=== PATIENT | male | born 1965 | race Caucasian/White ===

== ENCOUNTER 2017-02-25 09:01 | Emergency (ER) ==
[2017-02-25 09:04] VITALS: BP 149/82; TEMP 97.9; BMI 23.7
[2017-02-25] MEDS ORDERED: MORPHINE 10 MG/ML SYRINGE IM STA ×2 (09:11→10:18)
[2017-02-25] MEDS ORDERED: ZOFRAN 4 MG/2 ML IM STA (09:11)
[2017-02-25] MEDS ORDERED: MORPHINE 2 MG/ML SYRINGE IM STA ×2 (09:12→10:19)
[2017-02-25 09:40] LABS: BASOPHILS # (AUTO) 0.1 K/uL (0-0.2); BASOPHILS % (AUTO) 0.5 % (0.0-3.0); EOSINOPHILS # (AUTO) 0.1 K/ul (0.0-0.7); HEMATOCRIT 44.7 % (42.0-52.0); HEMOGLOBIN 15.8 g/dl (14.0-18.0); IMMATURE GRANULOCYTE % (AUTO) 0.3 % (0.0-5.0); LYMPHOCYTES # (AUTO) 2.6 K/uL (0.60-3.4); LYMPHOCYTES % (AUTO) 25.6 (10.0-50.0); MEAN CORPUSCULAR HEMOGLOBIN 31.1 pg (27.0-31.0); MEAN CORPUSCULAR HGB CONC 35.3 (31.8-35.4); MONOCYTES # (AUTO) 0.9 K/uL (0.4-2.0); MONOCYTES % (AUTO) 8.7 (0-10); NEUTROPHILS # (AUTO) 6.5 K/ul (2.0-6.9); NEUTROPHILS % (AUTO) 63.9; PLATELET COUNT 232 10^3/uL (140-440); RED BLOOD COUNT 5.08 10^6/ul (4.70-6.10); WHITE BLOOD COUNT 10.18 K/ul (4.2-10.2)
[2017-02-25 09:58] LABS: ALBUMIN 3.3 g/dL (3.4-5.0); ALBUMIN/GLOBULIN RATIO 0.79; ANION GAP 15.9; BILIRUBIN,TOTAL 0.3 mg/dL (0.00-1.20); BUN/CREATININE RATIO 13.54; CALCIUM 9.8 mg/dL (8.2-10.2); CREATININE 0.96 mg/dL (0.60-1.10); POTASSIUM 3.9 mmol/L (3.5-5.1); TOTAL PROTEIN 7.5 g/dL (6.4-8.2)
--- NOTE | 2017-02-25 10:08 | CT ---
EXAM: CT of the head without contrast History: Headache. Comparison: Head CT 05/26/2015 Technique: Multiplanar CT images through the head were obtained without the administration of IV con trast Findings: The visualized paranasal sinuses and mastoid air cells are clear in general. No acute yodit varial abnormalities. Intracranially the ventricular and cisternal spaces are normal in size, shape and configuration for a patient of this age. No dominant mass or midline shift. No hydrocephalous. No acute intracranial hemorrhage or abnormal extraaxial fluid collections. Impression: No acute intracranial process
[2017-02-25 11:19] LABS: ERYTHROCYTE SEDIMENTATION RATE 15 mm/hr (0-15); ESR INTERNAL QC INTERNAL QC VALID
--- NOTE | 2017-02-25 11:23 | ED.PDOC ---
General ED Provider: Dr. JOSEY SALGUERO Chief Complaint: Headache Stated Complaint: headache Time Seen by Physician: 09:00 Mode of Arrival: Walk-In Information Source: Patient Exam Limitations: No limitations Nursing and Triage Documentation Reviewed and Agree: Yes Reviewed sepsis parameters & appropriate labs ordered?: Yes System Inflammatory Response Syndrome: Not Applicable Neurological Complaint Exam - Headache Complaint/Exam Onset: Gradual Duration: 1 day Symptoms Are: Still present Episodes Lasting: Hours Worst Headache Ever: No Initial Severity: Moderate Current Severity: Moderate Location: Diffuse Character: Reports: Typical headache, Migraine Aggravating: Reports: None Alleviating: Reports: None Associated Signs and Symptoms: Denies: Dizziness, Seizure, Nausea, Vomiting, Sinus pressure, Fever, Neck pain, Neck stiffness, Decreased LOC, Visual changes Related History: Reports: Similar episode Related Surgical History: Reports: None SAH Risk Factors: Reports: None Meningitis Risk Factors: Reports: None SDH Risk Factors: Reports: None Temporal Arteritis Risk Factors: Reports: None Normal Head CT Within Last 12 Months: No Fundoscopic Exam: Present: Normal Findings Papilledema Present: No Temporal Artery Tenderness: Present: None Sinus Tenderness: Present: None TMJ Tenderness: Present: None Glascow Coma Scale (see protocol): 15 Meningeal Signs Positive: No Pain on Passive Flexion-Positive Kernig's: No ROM Limited In: No Limitiations Focal Weakness: Present: None Focal Sensory Loss: Present: None Gait: Normal Nystagmus Present: No Gag Reflex Present: Yes [id number]: Normal Findings Babinski Sign: Negative Right, Negative Left Differential Diagnoses: Migraine, Temporal Arteritis, Tension Headache Review of Systems - Review Of Systems Constitutional: Reports: No symptoms Eyes: Reports: No symptoms Ears, Nose, Mouth, Throat: Reports: No symptoms Respiratory: Reports: No symptoms Cardiac: Reports: No symptoms GI: Reports: No symptoms : Reports: No symptoms Musculoskeletal: Reports: No symptoms Skin: Reports: No symptoms Neurological: Reports: Headache Endocrine: Reports: No symptoms Hematologic/Lymphatic: Reports: No symptoms All Other Systems: Reviewed and Negative Past Medical History - Past Medical History Previously Healthy: Yes Endocrine: Reports: None Cardiovascular: Reports: Hypertension Respiratory: Reports: None Hematological: Reports: None Gastrointestinal: Reports: None Genitourinary: Reports: None Neuro/Psych: Reports: None Musculoskeletal: Reports: None Cancer: Reports: None - Surgical History General Surgical History: Reports: Unknown - Family History Family History: Reports: Unknown - Social History Smoking Status: Current every day smoker, Heavy tobacco smoker Hx Substance Use: No Alcohol Screening: None Physical Exam - Physical Exam Appearance: Well-appearing, No pain distress, Well-nourished Eyes: ZAHRA, EOMI, Conjunctiva clear ENT: Ears normal, Nose normal, Oropharynx normal Respiratory: Airway patent, Breath sounds clear, Breath sounds equal, Respirations nonlabored Cardiovascular: RRR, Pulses normal, No rub, No murmur GI/: Soft, Nontender, No masses, Bowel sounds normal, No Organomegaly Musculoskeletal: Normal strength, ROM intact, No edema, No calf tenderness Skin: Warm, Dry, Normal color Neurological: Sensation intact, Motor intact, Reflexes intact, Cranial nerves intact, Alert, Oriented Psychiatric: Affect appropriate, Mood appropriate Critical Care Note - Critical Care Note Total Time (mins): 0 Course - Course Hematology/Chemistry: 02/25/17 09:25 02/25/17 09:25 Orders, Labs, Meds: Lab Review 02/25/17 02/25/17 02/25/17 09:25 09:25 09:25 WBC 10.18 RBC 5.08 Hgb 15.8 Hct 44.7 MCV 88.0 MCH 31.1 H MCHC 35.3 RDW Coeff of Grazyna 13.7 Plt Count 232 Immature Gran % (Auto) 0.3 Neut % (Auto) 63.9 Lymph % (Auto) 25.6 Clinch % (Auto) 8.7 Eos % (Auto) 1.0 Baso % (Auto) 0.5 Immature Gran # (Auto) 0.0 Neut # 6.5 Lymph # 2.6 Clinch # 0.9 Eos # 0.1 Baso # 0.1 ESR 15 Sodium 140 Potassium 3.9 Chloride 100 Carbon Dioxide 28 Anion Gap 15.9 BUN 13 Creatinine 0.96 Estimated GFR (MDRD) 83.00 BUN/Creatinine Ratio 13.54 Glucose 107 H Calcium 9.8 Total Bilirubin 0.30 AST 39 H ALT 56 Alkaline Phosphatase 69 Total Protein 7.5 Albumin 3.3 L Globulin 4.2 Albumin/Globulin Ratio 0.79 Orders Category Date Time Status BLOOD CULTURE Stat LAB 02/25/17 09:15 Completed CBC W/ AUTO DIFF Stat LAB 02/25/17 09:25 Completed COMPREHENSIVE METABOLIC PANEL Stat LAB 02/25/17 09:25 Completed ESR Stat LAB 02/25/17 09:25 Completed Morphine Sulfate [Morphine 2 mg/ml Syringe] MEDS 02/25/17 09:12 Discontinued 4 mg IM ONCE STA Morphine Sulfate [Morphine 2 mg/ml Syringe] MEDS 02/25/17 10:19 Discontinued 4 mg IM ONCE STA Ondansetron HCl/Pf [Zofran 4 mg/2 ml] MEDS 02/25/17 09:11 Discontinued 4 mg IM ONCE STA CT HEAD W/O CONTRAST Stat RADS 02/25/17 09:10 Completed Medications Discontinued Medications Generic Name Dose Route Start Last Admin Trade Name Luis Fernando PRN Reason Stop Dose Admin Morphine Sulfate 4 mg 02/25/17 09:12 02/25/17 09:30 Morphine 2 Mg/Ml Syringe IM 02/25/17 09:13 4 mg ONCE STA Administration Morphine Sulfate 4 mg 02/25/17 10:19 02/25/17 10:27 Morphine 2 Mg/Ml Syringe IM 02/25/17 10:20 4 mg ONCE STA Administration Ondansetron HCl 4 mg 02/25/17 09:11 02/25/17 09:30 Zofran 4 Mg/2 Ml IM 02/25/17 09:12 4 mg ONCE STA Administration Vital Signs: Temp Pulse Resp BP Pulse Ox 02/25/17 09:01 97.9 F 100 H 20 149/82 H 98 Departure - Departure Time of Disposition: 11:00 Disposition: HOME SELF-CARE Discharge Problem: Headache Instructions: Migraine Headache (ED) Condition: Good Pt referred to PMD for follow-up: Yes Prescriptions: Hydrocodone/Acetaminophen [[place] 10-325 Tablet] 1 each PO Q8HR #3 tablet Allergies/Adverse Reactions: Allergies No Known Allergies Allergy (Verified 02/25/17 09:04) Home Medications: Ambulatory Orders Hydrocodone/Acetaminophen [[place] 10-325 Tablet] 1 each PO Q8HR #3 tablet
== END 2017-02-25 11:32 | disposition home or self-care (01) ==
LOC: ED 09:01
DX: R51 Headache (principal); I10 Essential (primary) hypertension; F17.210 Nicotine dependence, cigarettes, uncomplicated
CPT/HCPCS: 36415; 80053; 85025; 85651; 87040; 96372; 99283

== ENCOUNTER 2024-06-30 20:30 | Observation (INO) ==
[2024-06-30 22:00] LABS: BASOPHILS # (AUTO) 0.1 K/uL (0-0.2); BASOPHILS % (AUTO) 0.8 % (0.0-3.0); EOSINOPHILS # (AUTO) 0.1 K/ul (0.0-0.7); EOSINOPHILS % (AUTO) 2.4 % (0.0-7.0); HEMATOCRIT 21.2 % (42.0-52.0); IMMATURE GRANULOCYTE % (AUTO) 0.3 % (0.0-5.0); LYMPHOCYTES # (AUTO) 1.1 K/uL (0.60-3.4); LYMPHOCYTES % (AUTO) 18.8 (10.0-50.0); MEAN CORPUSCULAR HEMOGLOBIN 19.9 pg (27.0-31.0); MEAN CORPUSCULAR HGB CONC 28.8 (31.8-35.4); MEAN CORPUSCULAR VOLUME 69.3 fl (80.0-94.0); MONOCYTES # (AUTO) 0.6 K/uL (0.4-2.0); MONOCYTES % (AUTO) 9.6 (0-10); NEUTROPHILS % (AUTO) 68.1 % (42.2-75.2); PLATELET COUNT 264 10^3/uL (140-440); RDW COEFFICIENT OF VARIATION 18.8 % (11.6-14.8); RED BLOOD COUNT 3.06 10^6/ul (4.70-6.10); WHITE BLOOD COUNT 5.91 K/ul (4.2-10.2)
[2024-06-30 22:03] LABS: HEMOGLOBIN 6.1 g/dl (14.0-18.0)
--- NOTE | 2024-06-30 22:10 | ED.PDOC ---
General ED Provider: Dr. ELBA PHILLIPS MD Chief Complaint: Chest Pain Stated Complaint: 58-year-old male history of smoking, no other reported medical history but does not follow-up with doctors presenting to the emergency department chief complaint of chest pain and shortness of breath. Patient states has been going on for 2 months. States when he walks he becomes significantly short of breath. He is not having any arm pain or neck pain, no palpitations. He is also reporting bilateral leg swelling that has been going on for the past couple months as well but he feels it is gotten worse. No fevers or chills no cough productive sputum, no nausea vomiting. No hemoptysis, no history of DVT or PE. Patient currently does not have any chest pain or shortness of breath. It is worse when he lies flat Time Seen by Provider: 06/30/24 21:28 Information Source: Patient Nursing and Triage Documentation Reviewed and Agree: Yes What is Opioid Naive?: *Opioid Naive implies the patient is not already taking opioids or not chronically receiving opioids on a daily basis. *PRN dosing is not "usually" associated with tolerance. *Patients are at higher risk of over-sedation and aspiration. What is Opioid Tolerant?: *Opioid Tolerance implies less than the expected response to an opioid. *Acquired tolerance is defined by the patient taking 60mg of oral morphine daily (or equianalgesic dose of another opioid) for 1 week or more. *Often associated with chronic pain. *May take more than usual dose to achieve desired pain control. Review of Systems Review Of Systems Constitutional: Denies Chills or Fever [facility] Social History History of recent travel: No Physical Exam Physical Exam Appearance: Reports Other (Disheveled appears older than stated age) Eyes: Reports ZAHRA and EOMI ENT: Reports Ears normal and Nose normal Neck: Supple Respiratory: Reports Airway patent and Crackles (Bilateral crackles and posterior lung campbell); Denies Wheezes or Retractions Cardiovascular: Reports RRR, Pulses normal, No rub, No murmur and Irregular rhythm GI/: Reports Soft and Nontender Musculoskeletal: Reports Normal strength and ROM intact Skin: Reports Warm, Dry and Other (Bilateral pitting edema up to the knees) Neurological: Reports Sensation intact and Motor intact Psychiatric: Reports Affect appropriate Interpretation EKG Interpretation EKG Interpretation By: ED Physician Time of EKG #1: 01:01 Rate: Tachy Rhythm: Sinus Ectopy: None Campo: NL ST Segment: Normal Course Course 06/30/24 21:05 06/30/24 21:05 Orders, Labs, Meds: Lab Review 06/30/24 06/30/24 06/30/24 21:05 22:30 23:06 WBC 5.91 RBC 3.06 L Hgb 6.1 L* Hct 21.2 L MCV 69.3 L MCH 19.9 L MCHC 28.8 L RDW Coeff of Grazyna 18.8 H Plt Count 264 Immature Gran % (Auto) 0.3 Neut % (Auto) 68.1 Lymph % (Auto) 18.8 Mineral % (Auto) 9.6 Eos % (Auto) 2.4 Baso % (Auto) 0.8 Neut # (Auto) 4.0 Lymph # (Auto) 1.1 Mineral # (Auto) 0.6 Eos # (Auto) 0.1 Baso # (Auto) 0.1 Immature Gran # (Auto) 0.0 Sodium 134.0 L Potassium 3.95 Chloride 105.8 Carbon Dioxide 20.4 L Anion Gap 11.75 BUN 23.3 H Creatinine 1.57 H Estimated GFR (MDRD) 46.00 BUN/Creatinine Ratio 14.84 Glucose 121.3 H Calcium 8.12 L Magnesium 1.69 Total Bilirubin 0.56 AST 238.8 H ALT 177.8 H Alkaline Phosphatase 96.7 Troponin I 0.019 0.020 NT-Pro-B Natriuret Pep 2450 H Total Protein 7.56 Albumin 3.33 L Globulin 4.23 Albumin/Globulin Ratio 0.78 SARS CoV-2 RNA Rapid RADHA Blood Type A POSITIVE Antibody Screen Negative Crossmatch (AHG) See Detail 07/01/24 00:30 WBC RBC Hgb Hct MCV MCH MCHC RDW Coeff of Grazyna Plt Count Immature Gran % (Auto) Neut % (Auto) Lymph % (Auto) Mineral % (Auto) Eos % (Auto) Baso % (Auto) Neut # (Auto) Lymph # (Auto) Mineral # (Auto) Eos # (Auto) Baso # (Auto) Immature Gran # (Auto) Sodium Potassium Chloride Carbon Dioxide Anion Gap BUN Creatinine Estimated GFR (MDRD) BUN/Creatinine Ratio Glucose Calcium Magnesium Total Bilirubin AST ALT Alkaline Phosphatase Troponin I NT-Pro-B Natriuret Pep Total Protein Albumin Globulin Albumin/Globulin Ratio SARS CoV-2 RNA Rapid RADHA Negative Blood Type Antibody Screen Crossmatch (AHG) Orders Category Date Time Status PLACE PATIENT OBSERVATION .TO MEDSURG (MONITORED BED ADMISSION 07/01/24 03:25 Active ) EKG-(ED ONLY) Stat CARDIO 06/30/24 21:41 Completed NPO REMINDER: IMAGING ONCE CARE 06/30/24 21:42 Completed TELEMETRY MONITORING TELE CARE 07/01/24 03:26 Active VITAL SIGNS Q4HR CARE 07/01/24 03:25 Active 2 GRAM SODIUM DIET DIETARY 07/01/24 Breakfast Ordered CBC W/ AUTO DIFF Stat LAB 06/30/24 21:05 Completed CBC W/ AUTO DIFF Timed LAB 07/01/24 06:00 Ordered CMP [COMPREHENSIVE METABOLIC PANEL] Stat LAB 06/30/24 21:05 Completed COMPREHENSIVE METABOLIC PANEL Timed LAB 07/01/24 06:00 Ordered MAGNESIUM Stat LAB 06/30/24 21:05 Completed PRBC Transfusion [PACKED CELLS] Stat LAB 06/30/24 22:30 Results PROBNP ED [NT-PROBNP(ED)] Stat LAB 06/30/24 21:05 Completed SARS COV-2 RNA RAPID RADHA Routine LAB 07/01/24 00:30 Completed TROPONIN I Stat LAB 06/30/24 21:05 Completed TROPONIN I Stat LAB 06/30/24 23:06 Completed TYPE AND SCREEN Stat LAB 06/30/24 22:30 Results Furosemide [Lasix] Meds 06/30/24 23:16 Discontinued 40 mg IVP ONCE ONE Heparin Sodium,Porcine [Heparin] Meds 07/01/24 09:00 Ordered 5,000 units SUBCUT Q12HR Iodixanol [Visipaque 320 mg/ml 100Ml] Meds 06/30/24 22:42 Discontinued 100 ml IVP ONCE ONE CTA CHEST PE PROTOCOL Stat RADS 06/30/24 21:41 Completed CXR [CHEST, 2 VIEWS PA & LAT] Stat RADS 06/30/24 21:41 Taken Medications Generic Name Dose Route Start Last Admin Trade Name Freq PRN Reason Stop Dose Admin Heparin Sodium (Porcine) 5,000 units 07/01/24 09:00 Heparin Sodium,Porcine 5,000 Units/Ml Syringe SUBCUT Q12HR RACHEL Discontinued Medications Generic Name Dose Route Start Last Admin Trade Name Freq PRN Reason Stop Dose Admin Furosemide 40 mg 06/30/24 23:16 Furosemide Inj 40 Mg/4 Ml Vial IVP 06/30/24 23:17 ONCE ONE Iodixanol 100 ml 06/30/24 22:42 06/30/24 22:56 Iodixanol 320 Mg/Ml 100ml IVP 06/30/24 22:43 100 ml ONCE ONE Administration Vital Signs: Temp Pulse Resp BP Pulse Ox 06/30/24 20:32 98.2 F 114 H 32 H 149/90 H 99 Discharge Plan Discharge Patient Disposition: ADMITTED INPATIENT Discharge Problem: Anemia, CHF (congestive heart failure) Did you review [place] for ALL controlled substances?: Not Applicable ED Provider: ELBA PHILLIPS Condition: Stable Physician Progress Note: 58-year-old male history of smoking does not follow physicians presenting with worsening shortness of breath, orthopnea, dyspnea on exertion, chest pain, afebrile, vitals are stable, patient has crackles on his lung exam no JVD noted but positive swelling bilaterally we will get EKG CBC CMP Trope proBNP chest x- ray high suspicion for CHF, patient denies alcohol use. He is not having abdominal pain no abdominal tenderness. Will also get CT rule out PE as he does intermittently have tachycardia.
[2024-06-30 22:20] LABS: ALANINE AMINOTRANSFERASE 177.8 U/L (0-50); ALBUMIN 3.33 g/dL (3.5-5.0); ALKALINE PHOSPHATASE 96.7 U/L (38-126); ASPARTATE AMINO TRANSFERASE 238.8 U/L (17-59); BILIRUBIN,TOTAL 0.56 mg/dL (0.2-1.3); BLOOD UREA NITROGEN 23.3 mg/dL (9-20); CALCIUM 8.12 mg/dL (8.4-10.2); CARBON DIOXIDE 20.4 mmol/L (22-30.0); CHLORIDE 105.8 mmol/L (98-107); CREATININE 1.57 mg/dL (0.60-1.10); GLUCOSE 121.3 mg/dL (74-106); MAGNESIUM 1.69 mg/dL (1.6-2.3); POTASSIUM 3.95 mmol/L (3.5-5.1); TOTAL PROTEIN 7.56 g/dL (6.3-8.2)
[2024-06-30 22:31] LABS: TROPONIN I 0.019 ng/ml (0.0000-0.120)
[2024-06-30] MEDS: VISIPAQUE 320 MG/ML 100ML IVP ONE (22:56)
--- NOTE | 2024-06-30 23:26 | CT ---
EXAM: CTA OF THE CHEST. HISTORY: Short of breath, leg swelling TECHNIQUE: Multiplanar CT images through the thorax were obtained following the administration of IV contrasts. MIP images and three-dimensional reconstructions were also acquired COMPARISON: CTA of the chest 11/03/2022 FINDINGS: Heart is enlarged. Small pericardial effusion. No pathologic adenopathy. No thoracic aorti c aneurysm. No pulmonary arterial filling defects. There is interstitial edema with interlobular sept al thickening. No pleural fluid and no pneumothorax. Mild emphysema. No suspicious lung masses or dylan g nodules. Infiltrate within the lingula. Within the visualized upper abdomen, no grossly acute findings. Possible cirrhosis and partially visu alized prominent lymph nodes within the upper abdomen. No acute osseous abnormalities. IMPRESSION: 1. No pulmonary embolism. 2. Cardiomegaly with interstitial edema. 3. Small focal infiltrate within the lingula suspicious for pneumonia All CT scans are performed using dose optimization techniques as appropriate to the performed exam an d include at least one of the following: Automated exposure control, adjustment of the mA and/or kV according t o size, and the use of iterative reconstruction technique.
[2024-06-30] MEDS: LASIX IVP ONE (23:43)
[2024-07-01 03:19] LABS: SARS COV-2 RNA RAPID NAAT NEGATIVE (NEGATIVE)
[2024-07-01 05:38] VITALS: BMI 21.8
[2024-07-01 06:12] LABS: BASOPHILS # (AUTO) 0.1 K/uL (0-0.2); BASOPHILS % (AUTO) 1.1 % (0.0-3.0); EOSINOPHILS # (AUTO) 0.2 K/ul (0.0-0.7); HEMATOCRIT 24.8 % (42.0-52.0); IMMATURE GRANULOCYTE % (AUTO) 0.2 % (0.0-5.0); LYMPHOCYTES # (AUTO) 1.2 K/uL (0.60-3.4); LYMPHOCYTES % (AUTO) 20.8 (10.0-50.0); MEAN CORPUSCULAR HEMOGLOBIN 19.2 pg (27.0-31.0); MEAN CORPUSCULAR HGB CONC 27.8 (31.8-35.4); MEAN CORPUSCULAR VOLUME 69.1 fl (80.0-94.0); MONOCYTES # (AUTO) 0.6 K/uL (0.4-2.0); MONOCYTES % (AUTO) 9.8 (0-10); NEUTROPHILS # (AUTO) 3.7 K/ul (2.0-6.9); NEUTROPHILS % (AUTO) 65.1 % (42.2-75.2); PLATELET COUNT 186 10^3/uL (140-440); RDW COEFFICIENT OF VARIATION 18.7 % (11.6-14.8); RED BLOOD COUNT 3.59 10^6/ul (4.70-6.10); WHITE BLOOD COUNT 5.71 K/ul (4.2-10.2)
[2024-07-01] MEDS ORDERED: TORADOL IVP PRN (06:12)
[2024-07-01 06:14] LABS: HEMOGLOBIN 6.9 g/dl (14.0-18.0)
[2024-07-01 06:25] LABS: ALANINE AMINOTRANSFERASE 187.7 U/L (0-50); ALBUMIN 3.67 g/dL (3.5-5.0); ALKALINE PHOSPHATASE 107.5 U/L (38-126); ASPARTATE AMINO TRANSFERASE 262.1 U/L (17-59); BILIRUBIN,TOTAL 0.69 mg/dL (0.2-1.3); BLOOD UREA NITROGEN 21.6 mg/dL (9-20); CALCIUM 8.59 mg/dL (8.4-10.2); CARBON DIOXIDE 23.1 mmol/L (22-30.0); CHLORIDE 104.7 mmol/L (98-107); CREATININE 1.43 mg/dL (0.60-1.10); MAGNESIUM 1.55 mg/dL (1.6-2.3); POTASSIUM 4.11 mmol/L (3.5-5.1); SODIUM 136.2 mmol/L (134.5-145); TOTAL PROTEIN 8.19 g/dL (6.3-8.2)
[2024-07-01] MEDS ORDERED: MAGNESIUM SULFATE 1 GM/100 ML D5W 1 GM/100 ML BAG IV ONE (06:58)
--- NOTE | 2024-07-01 07:00 | DI ---
EXAM: 2 VIEWS OF THE CHEST. HISTORY: Cough COMPARISON: Chest radiograph 12/13/2023 FINDINGS: Prominent heart size. Interlobular septal thickening. No obvious pleural fluid and no pne umothorax. No acute osseous findings. IMPRESSION: Bilateral interstitial thickening could represent edema or interstitial pneumonitis
[2024-07-01 07:30] VITALS: RESP 16
[2024-07-01] MEDS ORDERED: HEPARIN SUBCUT SCH (09:00)
[2024-07-01] MEDS: LASIX IVP ONE (09:35)
[2024-07-01] MEDS ORDERED: COZAAR PO SCH (10:45)
[2024-07-01 11:03] VITALS: BP 159/103; PULSE 88; TEMP 97.3
--- NOTE | 2024-07-01 11:22 | PCM ---
Date of Service Date Seen by Provider: 07/01/24 Time Seen by Provider: 08:45 Admit Day/Time Admission Date: 06/30/24 Reason for Admission Chief Complaint: CHEST PAIN, SOB,CHF,ANEMIA Hospital Provider Hospital Provider: RACHEAL AUSTIN, [facility] History of Present Illness History of Present Illness: 58 yo male with pmh of hypertension and medical noncompliance presented to the ER with complaints of chest pain, SOB, and BLE edema that has been ongoing for approximately 2 months. States he has not seen a doctor in a couple years and is supposed to be taking BP medication. Reports SOB is worse on exertion and feels he is not able to do much of anything. Also reports inability to lay flat. Describes chest pain as a pressure. Denies any fever, cough, chills, n/v/d. Hemoglobin incidentally found to be 6. No reported symptoms of bleeding. BNP elevated >2000, CTA chest showed cardiomegaly with interstitial edema and small focal infiltrate suspicious for pneumonia. However, patient has not had fever and white count is not elevated. Feel symptoms contributing to new onset CHF. He was given 40 mg of lasix and 1 unit of PRBC was started. Admitted to med/surg observation Case Discussed With Case Discussed With: Patient's case was discussed with the ER Physicians, Dr. Talavera. [facility] Medical History Gastric ulcer K25.9 - Gastric ulcer, unspecified as acute or chronic, without hemorrhage or perforation (ICD-10) Wrist fracture, right S62.101A - Fracture of unspecified carpal bone, right wrist, initial encounter for closed fracture (ICD-10) Family History Other No known health problems Social History Smoking and tobacco status: Former smoker Tobacco: How many years used: 30 How long ago did patient quit smokin YEARS History of recent travel: No Allergies Allergies Allergy/AdvReac Type Severity Reaction Status Date / Time No Known Allergies Allergy Verified 06/30/24 20:44 Current Medications Home Medications Ferrous Sulfate (Ferrous Sulfate 324 Mg Susan.) 324 mg PO BID RACHEL Ketorolac Tromethamine (Ketorolac Tromethamine 15 Mg/Ml Vial) 15 mg IVP Q6HR PRN PRN Reason: Pain Stop: 07/05/24 06:12 Losartan Potassium (Losartan Potassium 25 Mg Tablet) 50 mg PO BID RACHEL ferrous sulfate 324 mg (65 mg iron) tablet,delayed release 324 mg PO BID #60 tabs 07/02/24 [Rx] furosemide 20 mg tablet 20 mg PO DAILY #14 tabs 07/02/24 [Rx] losartan 50 mg tablet 50 mg PO BID #60 tabs 07/02/24 [Rx] Opioid Naive vs. Tolerant Does Patient Take Opioids?: No Is Patient Opioid Naive?: Yes What is Opioid Naive?: *Opioid Naive implies the patient is not already taking opioids or not chronically receiving opioids on a daily basis. *PRN dosing is not "usually" associated with tolerance. *Patients are at higher risk of over-sedation and aspiration. Is Patient Opioid Tolerant?: No What is Opioid Tolerant?: *Opioid Tolerance implies less than the expected response to an opioid. *Acquired tolerance is defined by the patient taking 60mg of oral morphine daily (or equianalgesic dose of another opioid) for 1 week or more. *Often associated with chronic pain. *May take more than usual dose to achieve desired pain control. Review of Systems Constitutional: Reports Fatigue Head: Reports Normocephalic Eyes: Reports No symptoms Ears: Reports No symptoms Nose: Reports No symptoms Mouth: Reports No symptoms Throat: Reports No symptoms Cardiovascular: Reports Chest Pressure and Orthopnea Respiratory: Reports Shortness of air Gastrointestinal: Reports No symptoms Genitourinary: Reports No Symptoms Musculoskeletal: Reports No symptoms Endocrine: Reports No symptoms Hematology: Reports No symptoms Immunology: Reports No symptoms Neurological: Reports No symptoms Psychiatric: Reports No symptoms Physical examination Most Recent Vital Signs: Most Recent Vital Signs Temperature 97.3 F L 07/01/24 11:00 Temperature Source Temporal Artery Scan 07/01/24 05:24 Temperature Source Infrared 06/30/24 20:32 Pulse Rate 88 07/01/24 11:00 Respiratory Rate 16 07/01/24 11:00 Blood Pressure 159/103 H 07/01/24 11:00 Blood Pressure Mean 121 07/01/24 11:00 Blood Pressure Left Arm 166/100 07/01/24 05:19 Blood Pressure Location Right Arm 07/01/24 05:24 Blood Pressure Position Supine 07/01/24 05:24 O2 Sat by Pulse Oximetry 98 07/01/24 05:24 Oxygen Delivery Method Room Air 07/01/24 05:52 Height 6 ft 07/01/24 05:19 Weight 73 kg 07/01/24 05:19 Telemetry Heart Rate 71 05/27/15 13:00 Appearance: Positive No Apparent Distress, Alert and Oriented x3, Ill-Appearing, Thin and Other (unkempt ) Skin: Positive Warm and Good Turgor HEENT: Positive Normocephalic and PERRLA Neck: Positive Supple and Midline Trachea; Negative JVD Chest/Lungs: Positive Symmetrical With Equal Breath Sounds, Clear to Auscultation Bilaterally and Good Air Movement all 4 Lung Mora; Negative Rales, Rhonci or Wheezes Heart: Positive RRR, Pulses Normal, No S3 Auscultated and No S4 Auscultated; Negative Rub, Murmur, Irregular Rhythm, Tachycardia or Bracycardia GI/: Positive Soft, Nontender, Bowel Sounds Normal, No Distention and No Organomegaly Musculoskeletal: Positive Not Examined Extremities: Positive Edema (+3 pitting BLE), Intact Peripheral Pulses, Stable Joints Without Laxity and Good ROM in All Joints Neurological: Positive Sensation Intact, Motor intact, Reflexes Intact, Alert, Oriented and Muscle Strength 5/5 in Upper and Lower Extremities Bilaterally Labs This Visit Labs This Visit: Labs This Visit 06/30/24 06/30/24 06/30/24 21:05 22:30 23:06 WBC 5.91 RBC 3.06 L Hgb 6.1 L* Hct 21.2 L MCV 69.3 L MCH 19.9 L MCHC 28.8 L RDW Coeff of Grazyna 18.8 H Plt Count 264 Immature Gran % (Auto) 0.3 Neut % (Auto) 68.1 Lymph % (Auto) 18.8 [place] % (Auto) 9.6 Eos % (Auto) 2.4 Baso % (Auto) 0.8 Neut # (Auto) 4.0 Lymph # (Auto) 1.1 [place] # (Auto) 0.6 Eos # (Auto) 0.1 Baso # (Auto) 0.1 Immature Gran # (Auto) 0.0 Sodium 134.0 L Potassium 3.95 Chloride 105.8 Carbon Dioxide 20.4 L Anion Gap 11.75 BUN 23.3 H Creatinine 1.57 H Estimated GFR (MDRD) 46.00 BUN/Creatinine Ratio 14.84 Glucose 121.3 H Calcium 8.12 L Magnesium 1.69 Total Bilirubin 0.56 AST 238.8 H ALT 177.8 H Alkaline Phosphatase 96.7 Troponin I 0.019 0.020 NT-Pro-B Natriuret Pep 2450 H Total Protein 7.56 Albumin 3.33 L Globulin 4.23 Albumin/Globulin Ratio 0.78 SARS CoV-2 RNA Rapid RADHA Blood Type A POSITIVE Antibody Screen Negative Crossmatch ([facility]) See Detail 07/01/24 07/01/24 00:30 06:09 WBC 5.71 RBC 3.59 L Hgb 6.9 L* Hct 24.8 L MCV 69.1 L MCH 19.2 L MCHC 27.8 L RDW Coeff of [place] 18.7 H Plt Count 186 Immature Gran % (Auto) 0.2 Neut % (Auto) 65.1 Lymph % (Auto) 20.8 [place] % (Auto) 9.8 Eos % (Auto) 3.0 Baso % (Auto) 1.1 Neut # (Auto) 3.7 Lymph # (Auto) 1.2 [place] # (Auto) 0.6 Eos # (Auto) 0.2 Baso # (Auto) 0.1 Immature Gran # (Auto) 0.0 Sodium 136.2 Potassium 4.11 Chloride 104.7 Carbon Dioxide 23.1 Anion Gap 12.51 BUN 21.6 H Creatinine 1.43 H Estimated GFR (MDRD) 51.00 BUN/Creatinine Ratio 15.10 Glucose 110.0 H Calcium 8.59 Magnesium 1.55 L Total Bilirubin 0.69 AST 262.1 H ALT 187.7 H Alkaline Phosphatase 107.5 Troponin I NT-Pro-B Natriuret Pep Total Protein 8.19 Albumin 3.67 Globulin 4.52 Albumin/Globulin Ratio 0.81 SARS CoV-2 RNA Rapid RADHA Negative Blood Type Antibody Screen Crossmatch ([facility]) Imaging Imaging: EXAM: CTA OF THE CHEST. FINDINGS: Heart is enlarged. Small pericardial effusion. No pathologic adenopathy. No thoracic aortic aneurysm. No pulmonary arterial filling defects. There is interstitial edema with interlobular septal thickening. No pleural fluid and no pneumothorax. Mild emphysema. No suspicious lung masses or lung nodules. Infiltrate within the lingula. Within the visualized upper abdomen, no grossly acute findings. Possible cirrhosis and partially visualized prominent lymph nodes within the upper abdomen. No acute osseous abnormalities. IMPRESSION: 1. No pulmonary embolism. 2. Cardiomegaly with interstitial edema. 3. Small focal infiltrate within the lingula suspicious for pneumonia EXAM: 2 VIEWS OF THE CHEST. FINDINGS: Prominent heart size. Interlobular septal thickening. No obvious pleural fluid and no pneumothorax. No acute osseous findings. IMPRESSION: Bilateral interstitial thickening could represent edema or interstitial pneumonitis EKG Interpretation EKG Interpretation: no acute changes. Sinus tachycardia with PACs Review Statement Review Statement: I have independently reviewed and interpreted the labs/EKGs/imaging that were ordered by the ER provider. I have reviewed all outside records that are available currently in our EMR including imaging/notes/labs from previous visits. Plan Plan: 1. New onset CHF - lasix 20 mg Q8H IVP, low sodium diet, I&O, daily weight, will order echo outpatient 2. Anemia - hemoglobin 6, transfuse 2 units of PRBC, given 20 mg lasix between units, repeat H&H 1 hour post transfusion, will check iron studies 3. Uncontrolled HTN - starting losartan 50 mg daily, hydralazine 10 mg Q6H prn, will adjust accordingly 4. Transaminitis - Denies alcohol or drug use, No abd pain, likely reactive due to viral pneumonia 5. Small focal infiltrate within the lingula suspicious for pneumonia - no s/sx, wbc normal, no fever, likely viral DVT Prophylaxis: Ambulation Time Spent: Greater than 80 minutes spent with patient, 50% of the time spent with this patient was devoted to counseling and coordination of care. [facility] minutes spent discussing advance care planning. Disposition: Admit to: Med/Surg Observation DNR Discussed Plan of Care with Dr. Alex Nina. Medications Medication Orders: Medications Ordered Category Date Time Status Ketorolac Tromethamine [Toradol] Meds 07/01/24 06:12 Active 15 mg IVP Q6HR PRN Losartan Potassium [Cozaar] Meds 07/01/24 10:45 Active 50 mg PO DAILY
[2024-07-01] MEDS ORDERED: HYDRALAZINE HCL ONE (14:17)
[2024-07-01] MEDS ORDERED: LOPRESSOR ONE (20:13)
[2024-07-02] MEDS ORDERED: HYDRALAZINE HCL ONE (03:07)
[2024-07-02] MEDS ORDERED: LOPRESSOR ONE (08:20)
[2024-07-02] MEDS ORDERED: LASIX ONE (08:35)
[2024-07-02 08:44] LABS: IRON 38.4 ug/dL (49-181)
--- NOTE | 2024-07-02 09:22 | DCSUM ---
Admission Date Admission Date: 06/30/24 Discharge Date Discharge Date: 07/02/24 Admission Diagnosis Admission Diagnosis: 1. New onset CHF 2. Anemia 3. Uncontrolled HTN 4. Transaminitis 5. Small focal infiltrate within the lingula suspicious for pneumonia Discharge Diagnosis Discharge Diagnosis: 1. New onset CHF - Improving 2. Anemia - Improving 3. Uncontrolled HTN - Improving 4. Transaminitis - Stable, no pain, likely reactive due to viral pneumonia 5. Small focal infiltrate within the lingula suspicious for pneumonia - no s/sx, wbc normal, no fever, likely viral Hospital Provider Hospital Provider: RACHEAL AUSTIN, [facility] Summary of History and Physical Summary of History and Physical: 58 yo male with pmh of hypertension and medical noncompliance presented to the ER with complaints of chest pain, SOB, and BLE edema that has been ongoing for approximately 2 months. States he has not seen a doctor in a couple years and is supposed to be taking BP medication. Reports SOB is worse on exertion and feels he is not able to do much of anything. Also reports inability to lay flat. Describes chest pain as a pressure. Denies any fever, cough, chills, n/v/d. Hemoglobin incidentally found to be 6. No reported symptoms of bleeding. BNP elevated >2000, CTA chest showed cardiomegaly with interstitial edema and small focal infiltrate suspicious for pneumonia. However, patient has not had fever and white count is not elevated. Feel symptoms contributing to new onset CHF. He was given 40 mg of lasix and 1 unit of PRBC was started. Admitted to med/surg observation Hospital Course Subjective: During stay, patient was given 2 units of PRBCs for hemoglobin of 6. Improved to 9.2 this am. Iron studies low. Supplementation initiated. BP has been elevated as high as 180 systolic. Started on losartan 50 mg daily. Did require 2 doses of IV hydralazine in addition to adding losartan. D/c with losartan 50 mg bid. Diuresed well with lasix 20 mg Q8H. Edema improved. Chest pain and exertional sob resolved. Mag was mildly low at 1.4. Replacement given. Patient reported extensive leg cramps. Resolved after replacement. Incidental finding of elevated transaminases. Patient denies alcohol or drug use. Likely reactive due to pneumonia on CTA. Denies any abdominal pain. Small infiltrate present on CTA suspicious for pneumonia. Patient has not exhibited in s/sx. No fever or white count elevation. Likely viral. Feeling much better today and requesting discharge. Unable to complete echo at this time in house. Orders have been sent and patient will be called to schedule outpatient. D/c with rx for iron, lasix, and losartan. Follow-up with PCP in 1 week. Appearance: Pleasant, No Apparent Distress and Alert HEENT: MMM, Supple and No JVD CVS: No Murmur, No Rubs and No Gallop Abdomen: Soft, Non-Tender and No Distention Respiratory: No Dyspnea Additional Findings: +1 pitting edema to BLE Vital Signs: Most Recent Vital Signs Temperature 97.3 F L 07/01/24 11:00 Temperature Source Temporal Artery Scan 07/01/24 05:24 Temperature Source Infrared 06/30/24 20:32 Pulse Rate 88 07/01/24 11:00 Respiratory Rate 16 07/01/24 11:00 Blood Pressure 159/103 H 07/01/24 11:00 Blood Pressure Mean 121 07/01/24 11:00 Blood Pressure Left Arm 166/100 07/01/24 05:19 Blood Pressure Location Right Arm 07/01/24 05:24 Blood Pressure Position Supine 07/01/24 05:24 O2 Sat by Pulse Oximetry 98 07/01/24 05:24 Oxygen Delivery Method Room Air 07/01/24 05:52 Height 6 ft 07/01/24 05:19 Weight 73 kg 07/01/24 05:19 Telemetry Heart Rate 71 05/26/16 13:00 Imaging: EXAM: 2 VIEWS OF THE CHEST. FINDINGS: Prominent heart size. Interlobular septal thickening. No obvious pleural fluid and no pneumothorax. No acute osseous findings. IMPRESSION: Bilateral interstitial thickening could represent edema or interstitial pneumonitis EXAM: CTA OF THE CHEST. FINDINGS: Heart is enlarged. Small pericardial effusion. No pathologic adenopat hy. No thoracic aortic aneurysm. No pulmonary arterial filling defects. There is interstitial edema with interlobular septal thickening. No pleural fluid and no pneumothorax. Mild emphysema. No suspicious lung masses or lung nodules. Infiltrate within the lingula. Within the visualized upper abdomen, no grossly acute findings. Possible cirrhosis and partially visualized prominent lymph nodes within the upper abdomen. No acute osseous abnormalities. IMPRESSION: 1. No pulmonary embolism. 2. Cardiomegaly with interstitial edema. 3. Small focal infiltrate within the lingula suspicious for pneumonia Lab Results Last 24 Hours: 07/02/24 06/30/24 05:10 22:30 Iron 38.4 L TIBC 467 % Saturation 8 Ferritin 10.00 L Blood Type A POSITIVE Antibody Screen Negative Crossmatch ([facility]) See Detail Discharge Instructions Discharge Planning: Discharge Planning > 40 minutes If patient is discharged with left ventricular systolic dysfunction: unknown, unable to complete echo at this time Discharged with a beta tony? [] If no, why not? [] Discharged with an anthony/arb? [] If no, why not? [] Diagnosis: Uncontrolled hypertension, CHF, Iron Deficiency Anemia Diet: Low salt Activity: as tolerated Medications: [facility] 2 * Lasix 20 mg daily * Losartan 50 mg twice a day * Iron 325 mg twice a day Follow-up with PCP next week Be sure to weigh yourself every day. Contact your provider if you gain 3 lbs in 1 day or 5 lbs in 1 week You will be contacted to schedule an echocardiogram of your heart. Discharge Medications: Medications at Discharge (Home Meds & RX) ferrous sulfate 324 mg (65 mg iron) tablet,delayed release 324 mg PO BID #60 tabs 07/02/24 furosemide 20 mg tablet 20 mg PO DAILY #14 tabs 07/02/24 losartan 50 mg tablet 50 mg PO BID #60 tabs 07/02/24 Discharge Plan Discharge Discharge Orders: Discharge Patient (ONCE); Ordered 07/02/24 Ordered By: CAROLEE SALGADO Activity Restrictions/Additional Instructions: Diagnosis: Uncontrolled hypertension, CHF, Iron Deficiency Anemia Diet: Low salt Activity: as tolerated Medications: [facility] 2 * Lasix 20 mg daily * Losartan 50 mg twice a day * Iron 325 mg twice a day Follow-up with PCP next week Be sure to weigh yourself every day. Contact your provider if you gain 3 lbs in 1 day or 5 lbs in 1 week You will be contacted to schedule an echocardiogram of your heart. Instructions: Heart Failure (GEN), Iron Deficiency Anemia (GEN), Hypertension (ED), Anemia (GEN) Care Plan Goals: Problem: Anemia Goal: Lab values within normal limits Instructions: Monitor labs related to anemia per physician order Assess for bleeding Problem: Elevated blood pressure Goal: Medically managed blood pressure Instructions: Monitor blood pressure as needed Medication for elevated blood pressure as directed Monitor for signs/symptoms of elevated blood pressureProblem: Fluid Volume Excess Goal: Maintain adequate fluid volume Instructions: Maintain optimal head of bed placement Monitor respiratory status Monitor for edema Monitor hydration status Patient Disposition: HOME SELF-CARE Prescriptions: New ferrous sulfate 324 mg (65 mg iron) Tablet,Delayed Release (Dr/Ec) 324 mg PO BID Qty: 60 0RF losartan 50 mg tablet 50 mg PO BID Qty: 60 0RF furosemide 20 mg tablet 20 mg PO DAILY Qty: 14 0RF Did you review [place] [employer] for ALL controlled substances?: No Discussed opioids are addictive and Narcan is available by prescription or from pharmacy.: No Condition: Stable Referrals: TAN JAIMES APRN,[employer]PERATOR-[facility] [NURSE PRACTITIONER] - 07/09/24 3:30 pm
[2024-07-02] MEDS ORDERED: FERROUS SULFATE PO SCH (09:25)
[2024-07-02] MEDS ORDERED: COZAAR PO SCH (21:00)
[2024-07-03 11:14] LABS: HEMATOCRIT 30.8 % (42.0-52.0); HEMOGLOBIN 9.2 g/dl (14.0-18.0); LYMPHOCYTES % (AUTO) 16.8 (10.0-50.0); MEAN CORPUSCULAR HEMOGLOBIN 21.1 pg (27.0-31.0); MEAN CORPUSCULAR HGB CONC 29.9 (31.8-35.4); MEAN CORPUSCULAR VOLUME 70.5 fl (80.0-94.0); NEUTROPHILS % (AUTO) 69.3 % (42.2-75.2); PLATELET COUNT 306 10^3/uL (140-440); RDW COEFFICIENT OF VARIATION 19.6 % (11.6-14.8); RED BLOOD COUNT 4.37 10^6/ul (4.70-6.10); WHITE BLOOD COUNT 6.86 K/ul (4.2-10.2)
[2024-07-03 11:15] LABS: BASOPHILS # (AUTO) 0.1 K/uL (0-0.2); BASOPHILS % (AUTO) 0.7 % (0.0-3.0); BLOOD UREA NITROGEN 23.5 mg/dL (9-20); CARBON DIOXIDE 25.4 mmol/L (22-30.0); CHLORIDE 105.6 mmol/L (98-107); EOSINOPHILS # (AUTO) 0.2 K/ul (0.0-0.7); EOSINOPHILS % (AUTO) 2.5 % (0.0-7.0); IMMATURE GRANULOCYTE % (AUTO) 0.1 % (0.0-5.0); LYMPHOCYTES # (AUTO) 1.2 K/uL (0.60-3.4); MONOCYTES # (AUTO) 0.7 K/uL (0.4-2.0); MONOCYTES % (AUTO) 10.6 (0-10); NEUTROPHILS # (AUTO) 4.8 K/ul (2.0-6.9); POTASSIUM 3.79 mmol/L (3.5-5.1); SODIUM 137.3 mmol/L (134.5-145)
[2024-07-03 11:16] LABS: ALANINE AMINOTRANSFERASE 205.3 U/L (0-50); ALBUMIN 3.4 g/dL (3.5-5.0); ALKALINE PHOSPHATASE 108.4 U/L (38-126); ASPARTATE AMINO TRANSFERASE 311.9 U/L (17-59); BILIRUBIN,TOTAL 0.66 mg/dL (0.2-1.3); CALCIUM 8.63 mg/dL (8.4-10.2); CREATININE 1.34 mg/dL (0.60-1.10); GLUCOSE 121.3 mg/dL (74-106); MAGNESIUM 1.77 mg/dL (1.6-2.3); TOTAL PROTEIN 8.15 g/dL (6.3-8.2)
== END 2024-07-02 10:40 | disposition home or self-care (01) ==
LOC: MEDSURG B 20:30 → ED 20:30
PROVIDERS: ADMIT Hospitalist; ATTEND Nurse Practitioner Family
DX: R74.01 Elevation of levels of liver transaminase levels; Z20.822 Contact with and (suspected) exposure to COVID-19; Z91.199 Patient's noncompliance with other medical treatment and regimen due to unspecified reason; I50.9 Heart failure, unspecified; D50.9 Iron deficiency anemia, unspecified; I10 Essential (primary) hypertension; R91.8 Other nonspecific abnormal finding of lung field